=== PATIENT | male | born 1985 | race Caucasian/White ===

== ENCOUNTER 2020-03-26 08:05 | Emergency (ER) | payer BC, SELFPAY ==
[~2020-03-26] VITALS: Ht 177.8 cm; Wt 99.8 kg
[2020-03-26 08:05] VITALS: BP_SYST 140
== END 2020-03-26 09:17 | disposition home or self-care (01) ==
LOC: SED 08:05
DX: U07.1 COVID-19 (principal); R04.2 Hemoptysis
CPT/HCPCS: 71045; 99283

== ENCOUNTER 2020-03-27 23:16 | Emergency (ER) | payer BC, SELFPAY ==
[~2020-03-27] VITALS: Ht 177.8 cm; Wt 99.8 kg
[2020-03-27 23:36] VITALS: BP_SYST 123
--- NOTE | 2020-03-27 23:36 | NUR ---
Pt came to the emergency room with chief complaint of cough and congestion since last week. Patient stated that she was diagnosed with Covid on Sunday. Patient has no fever or chills. He denied being short of breath. He has mild pleuritic chest wall pain. Patient has no abdominal pain, nausea, vomiting or diarrhea. He still has a sense of smell and taste. Pt breathing easy, unlabored, not in distress. Pt ambulatory with steady gait
--- NOTE | 2020-03-27 23:37 | NUR ---
ER Dr. Resendiz in triage examining patient.
[2020-03-28 00:11] VITALS: BP_SYST 121
--- NOTE | 2020-03-28 00:11 | NUR ---
Patient given written and verbal discharge instructions by Dr Resendiz. and verbalizes understanding. ER MD discussed with patient the results and treatment provided. Patient in stable condition. ID arm band removed. Rx of Dexamethasone, Hydroxychloroquine given. Patient educated on pain management and to follow up with PMD by Dr. Resendiz. Pain Scale 0/10 PS. Opportunity for questions provided and answered.
== END 2020-03-28 00:11 | disposition home or self-care (01) ==
LOC: SED 23:16
DX: U07.1 COVID-19 (principal); R05 Cough
CPT/HCPCS: 99283

== ENCOUNTER 2020-06-25 19:17 | Emergency (ER) | payer BC, SELFPAY ==
[~2020-06-25] VITALS: Ht 175.3 cm; Wt 93.0 kg
[2020-06-25 19:20] VITALS: BP_SYST 149
[2020-06-25 20:26] LABS: HEMOGLOBIN 15.7 g/dL (14.0-18.0); MEAN CORPUSCULAR VOLUME 89 fL (79.0-98.0)
[2020-06-25 20:32] LABS: POTASSIUM 4.2 mmol/L (3.5-5.1)
[2020-06-25 20:33] LABS: CALCIUM 9.3 mg/dL (8.4-11.0); CREATININE 0.91 mg/dL (0.55-1.30)
[2020-06-25 20:34] LABS: BASOPHILS % (AUTO) 0.2 % (0.0-2.0); EOSINOPHILS % (AUTO) 0.3 % (0.0-4.0); HEMATOCRIT 45.5 % (36-54); INR 1.1 (0.80-1.20); LYMPHOCYTES # (AUTO) 2.5 K/uL (1.0-5.5); LYMPHOCYTES % (AUTO) 27.4 % (20.5-51.5); MEAN CORPUSCULAR HEMOGLOBIN 31 pg (27-31); MEAN CORPUSCULAR HGB CONC 35 % (32-36); MONOCYTES # (AUTO) 0.7 K/uL (0.0-1.0); MONOCYTES % (AUTO) 7.5 % (1.7-9.3); NEUTROPHILS # (AUTO) 5.8 K/uL (1.8-7.7); NEUTROPHILS % (AUTO) 64.6 % (40.0-70.0); PLATELET COUNT (AUTO) 230 K/uL (130-430); PROTHROMBIN TIME 10.8 SECS (9.5-12.5); RED BLOOD CELL COUNT(AUTO) 5.09 MIL/uL (4.2-6.2); RED CELL DISTRIBUTION WIDTH 12.5 % (9.0-15.0)
[2020-06-25 20:37] LABS: TOTAL BILIRUBIN 0.5 mg/dL (0.0-1.0)
[2020-06-25 20:38] LABS: ALBUMIN 4.1 g/dL (3.4-4.8)
[2020-06-25 20:39] LABS: BILIRUBIN,URINE NEGATIVE (NEGATIVE); BLOOD, URINE NEGATIVE (NEGATIVE); CLARITY/URINE CLEAR (CLEAR); COLOR,URINE YELLOW (YELLOW); GLUCOSE,URINE NEGATIVE (NEGATIVE); KETONES,URINE NEGATIVE (NEGATIVE); LEUKOCYTE ESTERASE ,URINE NEGATIVE (NEGATIVE); NITRITE, URINE NEGATIVE (NEGATIVE); PROTEIN URINE NEGATIVE (NEGATIVE)
[2020-06-25] MEDS ORDERED: IBUP-1971 PO (21:11)
[2020-06-25] MEDS ORDERED: HYDR-3919 PO (21:11)
[2020-06-25 21:22] VITALS: BP_SYST 132
== END 2020-06-25 21:23 | disposition home or self-care (01) ==
LOC: SED 19:17
DX: R10.33 Periumbilical pain (principal)
CPT/HCPCS: 36415; 76376; 80053; 81003; 82150-TC; 83605; 83690-TC; 85025; 85610-TC; 85730-TC; 99284

== ENCOUNTER 2021-04-01 07:35 | Emergency (ER) | payer BC, SELFPAY ==
[~2021-04-01] VITALS: Ht 177.8 cm; Wt 93.0 kg
[~2021-04-01 07:35] MED LIST: HYDR-3919 PO; IBUP-1971 PO
[2021-04-01 07:45] VITALS: BP_SYST 148
--- NOTE | 2021-04-01 07:45 | NUR ---
Pt to remain in the ER tent for evaluation.
--- NOTE | 2021-04-01 07:50 | NUR ---
Pt AAO and ambulatory reporting that he is Covid positive X 5 days. Pt was seen by PMD and was given an inhaler, prednisone, and cough syrup. Pt reports tightness when breathing and that he coughed up blood tinged phlegm X 1 episode. Pt denies any pain currently.
--- NOTE | 2021-04-01 08:10 | NUR ---
Dr. Song to tent to assess.
[2021-04-01 08:25] VITALS: BP_SYST 148
--- NOTE | 2021-04-01 08:25 | NUR ---
Patient given written and verbal discharge instructions and verbalizes understanding. DR. DANIEL OSEI MD discussed with patient the results and treatment provided. Patient in stable condition. ID arm band removed. Patient educated on pain management and to follow up with PMD. Pain Scale 0/10. Opportunity for questions provided and answered.
== END 2021-04-01 08:25 | disposition home or self-care (01) ==
LOC: SED 07:35
DX: R05.9 Cough, unspecified (principal); Z79.899 Other long term (current) drug therapy
CPT/HCPCS: 99281